=== PATIENT | female | born 1955 | race African-American/Black ===

== ENCOUNTER 2018-12-29 14:44 | Emergency (ER) | payer OTHER ==
[~2018-12-29] VITALS: Ht 167.6 cm; Wt 66.0 kg
[2018-12-29] MEDS ORDERED: GLIP5TAB12 PO (14:57)
[2018-12-29] MEDS ORDERED: HYDR25TA PO (14:57)
[2018-12-29] MEDS ORDERED: METF-415 PO (14:57)
[2018-12-29] MEDS ORDERED: SODIUM CHLORIDE 0.9% 1,000 ML IV ONE (23:03)
[2018-12-29 23:55] LABS: BASOPHILS % 0.6 % (0.0-2.0); HEMATOCRIT. 36.3 % (36.0-48.0); HEMOGLOBIN. 11.7 g/dL (12.0-16.0); LYMPHOCYTES % 25.4 % (20.0-50.0); MEAN CORPUSCULAR HEMOGLOBIN 23.5 pg (28.0-32.0); MEAN CORPUSCULAR VOLUME 73.3 fL (81.0-99.0); MEAN PLATELET VOLUME 7.6 fl (7.4-10.4); MONOCYTES % 9.1 % (2.0-8.0); NEUTROPHILS % 62.9 % (40.0-76.0); PLATELET 286 x1000/uL (130-400); RED BLOOD CELL COUNT 4.95 mill/uL (4.2-5.4); RED CELL DISTRIBUTION WIDTH 16.6 % (11.6-14.6)
[2018-12-29 23:58] LABS: CHLORIDE 102 mEq/L (98-107)
[2018-12-30 01:04] LABS: CLARITY URINE CLEAR (CLEAR); COLOR URINE YELLOW (YELLOW); KETONES URINE NEGATIVE (NEGATIVE); LEUKOCYTE ESTERASE URINE 1+ (NEGATIVE); NITRITE URINE NEGATIVE (NEGATIVE); OCCULT BLOOD URINE NEGATIVE (NEGATIVE); PROTEIN URINE NEGATIVE (NEGATIVE); UROBILINOGEN URINE 0.2 E.U./dL (0.2-1.0)
[2018-12-30 01:38] VITALS: BP 193/86
== END 2018-12-30 01:38 | disposition home or self-care (01) ==
LOC: ER 14:44
DX: T67.5XXA Heat exhaustion, unspecified, initial encounter (principal); E86.0 Dehydration; X32.XXXA Exposure to sunlight, initial encounter; Y93.89 Activity, other specified; Y92.214 College as the place of occurrence of the external cause; I10 Essential (primary) hypertension; E11.65 Type 2 diabetes mellitus with hyperglycemia; Z79.4 Long term (current) use of insulin
CPT/HCPCS: 36415; 71045; 80053; 81003; 84484; 85025; 93005; 96360; 99284; J7030